=== PATIENT | male | born 1965 | race Caucasian/White ===

== ENCOUNTER → 2021-09-28 | Outpatient (CLI) | payer BC ==
--- NOTE | 2021-09-28 09:09 | RAD ---
US RENAL BILAT: 09/28/2021 8:38 AM Indication: 55 years old Male. CKDstage III. Comparison: None. FINDINGS: Sonographic evaluation of the kidneys was performed utilizing grayscale, color Doppler. Right kidney: Size: 9.8 x 5.2 x 4.2cm. Collecting System: No hydronephrosis. No renal calculi detected. Parenchyma: Normal echotexture and morphology. No focal contour deforming renal mass. Left kidney: Size: 9.7 x 5.3 x 5.2cm. Collecting System: No hydronephrosis. No renal calculi detected. Parenchyma: Normal echotexture and morphology. No focal contour deforming renal mass. Urinary bladder: Bilateral urine jets visualized. Prevoid volume 60 cc. Prostate measures 2.9 x 3.7 x 3.7 cm (20.4 cc) IMPRESSION: No sonographic abnormality of the kidneys. No obstructive uropathy. Electronically signed by: Johanna Velasquez MD (09/28/2021 9:07 AM) [id number]
== END ==
LOC: US 08:33
PROVIDERS: ATTEND Family Medicine
DX: N18.31 Chronic kidney disease, stage 3a (principal); D75.1 Secondary polycythemia
CPT/HCPCS: 76770